=== PATIENT | male | born 1985 | race Caucasian/White ===

== ENCOUNTER 2016-10-29 15:27 | Emergency (ER) | payer OTHER ==
[2016-10-29 15:36] VITALS: BP 132/85
--- NOTE | 2016-10-29 15:51 | UC ---
Back Pain HPI - HPI Summary HPI Summary: 31 yo male with left upper back pain x about 5 days hurts to move left arm no neck pain or GUPTA - History of Current Complaint Chief Complaint: UCUpperExtremity Stated Complaint: LFT RIB AREA PAIN Time Seen by Provider: 10/29/16 15:34 Hx Obtained From: Patient Onset/Duration: Sudden Onset, Lasting Days Timing: Constant Severity Initially: Moderate Severity Currently: Moderate Pain Intensity: 4 Pain Scale Used: 0-10 Numeric Character: Aching, Throbbing, Spasmodic Aggravating: Movement, Lifting, Bending Alleviating: Rest Associated Signs And Symptoms: Positive: Negative Related History: Occupational Injury - Allergies/Home Medications Allergies/Adverse Reactions: Allergies Allergy/AdvReac Type Severity Reaction Status Date / Time No Known Allergies Allergy Verified 10/29/16 15:31 PMH/Surg Hx/FS Hx/Imm Hx Previously Healthy: Yes - Surgical History Surgical History: None - Family History Known Family History: Positive: Hypertension - Social History Alcohol Use: None Substance Use Type: None Substance Use Comment - Amount & Last Used: occasionally Smoking Status (MU): Former Smoker Type: Cigarettes Amount Used/How Often: 1/2 PPD Length of Time of Smoking/Using Tobacco: 10 YRS Have You Smoked in the Last Year: Yes When Did the Patient Quit Smoking/Using Tobacco: 3 months ago Review of Systems Constitutional: Negative Skin: Negative Eyes: Negative ENT: Negative Respiratory: Negative Cardiovascular: Negative Gastrointestinal: Negative Genitourinary: Negative Motor: Negative Neurovascular: Negative Musculoskeletal: Myalgia Neurological: Negative Psychological: Negative All Other Systems Reviewed And Are Negative: Yes Physical Exam Triage Information Reviewed: Yes Appearance: Well-Appearing, No Pain Distress, Well-Nourished, Ill-Appearing Vital Signs: Initial Vital Signs Temp 98.0 F 10/29/16 15:32 Pulse 67 10/29/16 15:32 Resp 16 10/29/16 15:32 BP 132/85 10/29/16 15:32 Pulse Ox 100 10/29/16 15:32 Vital Signs Reviewed: Yes Eyes: Positive: Conjunctiva Clear ENT: Positive: Hearing grossly normal Neck: Positive: Supple, Nontender Respiratory: Positive: Lungs clear, Normal breath sounds, No respiratory distress, No accessory muscle use Cardiovascular: Positive: RRR, No Murmur Musculoskeletal: Positive: ROM Intact, No Edema Neurological: Positive: Alert Psychological Exam: Normal Skin: Positive: rashes Back Pain Course/Dx - Differential Dx/Diagnosis Provider Diagnoses: left rhomoboid myofascial strain/spasm Discharge - Discharge Plan Condition: Stable Disposition: HOME Prescriptions: Cyclobenzaprine TAB* [Flexeril TAB*] 5 mg PO TID PRN #15 tab PRN Reason: Spasms Patient Education Materials: Thoracic Back Strain (ED) Referrals: No Primary Care Phys,NOPCP [Medical Doctor] - 7 Days Additional Instructions: see your MD next week if not better continue motrin PT consult Images Front/Back of Body, Lg ([place]): 1 - painful/tense
== END 2016-10-29 15:59 | disposition home or self-care (01) ==
LOC: UCCORT 15:27
DX: S46.812A Strain of other muscles, fascia and tendons at shoulder and upper arm level, left arm, initial encounter (principal); Z87.891 Personal history of nicotine dependence
CPT/HCPCS: 99212; G0463